=== PATIENT | female | born 1930 | race African-American/Black ===

== ENCOUNTER 2017-05-25 11:09 | Observation (INO) | payer MEDICARE ==
[~2017-05-25] VITALS: Ht 154.9 cm; Wt 43.1 kg
[2017-05-25] MEDS ORDERED: ALBUTEROL (0.083%) 2.5MG/3ML NEB HHN STA (11:25)
[2017-05-25] MEDS ORDERED: METHYLPREDNISOLONE SOD SUCC 125 MG/2 ML VIAL IV STA (11:25)
[2017-05-25] MEDS ORDERED: IPRATROPIUM BROMIDE (0.02%) 0.5MG/2.5ML NEB HHN STA (11:25)
[2017-05-25] MEDS ORDERED: MAGNESIUM 2 G PREMIX 50 ML IV ONE (11:30)
[2017-05-25] MEDS ORDERED: HYDRALAZINE 20MG/ML VIAL IV ONE (11:30)
[2017-05-25 12:37] LABS: CARBON DIOXIDE 36 mEq/L (21-32); CHLORIDE 101 mEq/L (98-107); TROPONIN I < 0.02 ng/mL (0.00-0.04)
[2017-05-25 12:47] LABS: PARTIAL THROMBOPLASTIN TIME 22.5 sec (23.4-31.0); PROTHROMBIN TIME 10.1 sec (9.4-11.6)
[2017-05-25 12:53] LABS: HEMATOCRIT. 36.2 % (36.0-48.0); MEAN CORPUSCULAR HEMOGLOBIN 29.5 pg (28.0-32.0); MEAN CORPUSCULAR VOLUME 88.8 fL (81.0-99.0); RED BLOOD CELL COUNT 4.08 mill/uL (4.2-5.4); RED CELL DISTRIBUTION WIDTH 13.8 % (11.6-14.6)
[2017-05-25] MEDS ORDERED: FUROSEMIDE 20MG/2ML VIAL IVP ONE (13:00)
[2017-05-25 13:36] LABS: PLATELET ESTIMATE NORMAL
[2017-05-25 13:37] LABS: PLATELET 209 x1000/uL (130-400)
[2017-05-25 15:45] VITALS: BP 196/71
[2017-05-25 17:26] LABS: CLARITY URINE CLEAR (CLEAR); COLOR URINE YELLOW (YELLOW); GLUCOSE URINE NEGATIVE (NEGATIVE); KETONES URINE NEGATIVE (NEGATIVE); LEUKOCYTE ESTERASE URINE 1+ (NEGATIVE); NITRITE URINE NEGATIVE (NEGATIVE); OCCULT BLOOD URINE 2+ (NEGATIVE); PROTEIN URINE NEGATIVE (NEGATIVE); SPECIFIC GRAVITY URINE 1.009 (1.005-1.030); UROBILINOGEN URINE 0.2 E.U./dL (0.2-1.0)
[2017-05-25] MEDS ORDERED: CLONIDINE 0.1MG TABLET PO NR (17:30)
[2017-05-25 17:31] VITALS: BP 196/71
[2017-05-25] MEDS ORDERED: DIPHENHYDRAMINE 50MG/ML VIAL IV PRN (19:15)
[2017-05-25] MEDS ORDERED: MAGNESIUM/ALUMINUM HYDROXIDE/SIMETHICONE 30ML UDC PO PRN (19:15)
[2017-05-25] MEDS ORDERED: CLONIDINE 0.1MG TABLET PO PRN (19:15)
[2017-05-25] MEDS ORDERED: IPRATROPIUM/ALBUTEROL 0.5-3(2.5)MG/3ML NEB INH PRN (19:15)
[2017-05-25] MEDS ORDERED: ACETAMINOPHEN 325MG TABLET PO PRN (19:15)
[2017-05-25] MEDS ORDERED: LORAZEPAM 0.5MG TABLET PO PRN (19:15)
[2017-05-25 20:00] VITALS: BP 107/43
[2017-05-25] MEDS ORDERED: TEMAZEPAM 15MG CAPSULE PO PRN (21:00)
[2017-05-25] MEDS: SODIUM CHLORIDE 0.9% INJ 3ML FLUSH IVF SCH (22:14)
[2017-05-26] VITALS: BP 120/42
[2017-05-26 08:00] VITALS: BP 156/57
[2017-05-26 12:00] VITALS: BP 155/55
[2017-05-26] MEDS ORDERED: LEVOFLOXACIN 500MG TABLET PO NR (13:15)
[2017-05-26 16:19] VITALS: BP 152/55
[2017-05-26] MEDS: ASPIRIN 81MG EC TABLET PO SCH (16:45)
[2017-05-26] MEDS: SODIUM CHLORIDE 0.9% INJ 3ML FLUSH IVF SCH ×2 (18:05→21:28)
[2017-05-26 20:00] VITALS: BP 187/66
[2017-05-26] MEDS: AMLODIPINE 2.5MG TABLET PO SCH (21:27)
[2017-05-27] VITALS: BP 166/58
[2017-05-27 04:00] VITALS: BP 168/67
[2017-05-27] MEDS: SODIUM CHLORIDE 0.9% INJ 3ML FLUSH IVF SCH (05:37)
[2017-05-27 07:22] LABS: BASOPHILS % 0.4 % (0.0-2.0); EOSINOPHILS % 2.8 % (0.0-5.0); HEMOGLOBIN. 11.2 g/dL (12.0-16.0); LYMPHOCYTES % 32.5 % (20.0-50.0); MEAN CORPUSCULAR HEMOGLOBIN 29.3 pg (28.0-32.0); MEAN CORPUSCULAR VOLUME 89.2 fL (81.0-99.0); MEAN PLATELET VOLUME 8.4 fl (7.4-10.4); MONOCYTES % 10.2 % (2.0-8.0); NEUTROPHILS % 54.1 % (40.0-76.0); PLATELET 192 x1000/uL (130-400); RED BLOOD CELL COUNT 3.81 mill/uL (4.2-5.4); RED CELL DISTRIBUTION WIDTH 13.8 % (11.6-14.6)
[2017-05-27 08:00] VITALS: BP 158/50
[2017-05-27 08:00] LABS: CARBON DIOXIDE 36 mEq/L (21-32); CHLORIDE 99 mEq/L (98-107); CREATINE KINASE 187 IU/L (26-192); CREATINE KINASE MB FRACTION 1.5 ng/mL (0.5-3.6); HDL CHOLESTEROL 62 mg/dL (40-59); LDL CHOLESTEROL 130 mg/dL (5-100); TROPONIN I 0.02 ng/mL (0.00-0.04)
[2017-05-27] MEDS: ASPIRIN 81MG EC TABLET PO SCH (09:00)
[2017-05-27] MEDS: AMLODIPINE 2.5MG TABLET PO SCH (09:27)
[2017-05-27 12:00] VITALS: BP 119/53
[2017-05-27 16:00] VITALS: BP 115/46
[2017-05-27 16:16] VITALS: BP 115/46
== END 2017-05-27 17:18 | disposition home or self-care (01) ==
LOC: ER 11:09 → 5WST 13:01 → INTOOBSV 13:01 → EDBEDREQ 13:15 → ENRESERV 13:56 → CANRESERV 13:56 → ENRESERV 14:50 → 5WST 05-26 08:57
PROVIDERS: ADMIT Internal Medicine; ATTEND Internal Medicine
DX: G90.8 Other disorders of autonomic nervous system (principal); R55 Syncope and collapse; R56.9 Unspecified convulsions; J44.1 Chronic obstructive pulmonary disease with (acute) exacerbation; I25.10 Atherosclerotic heart disease of native coronary artery without angina pectoris; I11.0 Hypertensive heart disease with heart failure; I50.9 Heart failure, unspecified; E78.00 Pure hypercholesterolemia, unspecified; F03.90 Unspecified dementia, unspecified severity, without behavioral disturbance, psychotic disturbance, mood disturbance, and anxiety; G93.40 Encephalopathy, unspecified; I65.29 Occlusion and stenosis of unspecified carotid artery; J39.8 Other specified diseases of upper respiratory tract; Z79.82 Long term (current) use of aspirin; Z82.49 Family history of ischemic heart disease and other diseases of the circulatory system; Z87.891 Personal history of nicotine dependence; Z95.5 Presence of coronary angioplasty implant and graft
CPT/HCPCS: 36415; 71010; 76536; 80053; 80061; 81001; 82550; 82553; 82962; 83605; 83690; 83735; 83880; 84443; 84484; 85025; 85379; 85610; 85730; 87040; 87077; 87086; 87186; 93005; 93306; 93970; 96374; 97162; 99291; C1893; G0378; J1940; J0360; J2930; J3475